=== PATIENT | female | born 1960 | race African-American/Black ===

== ENCOUNTER → 2016-10-31 | Outpatient (CLI) | payer MEDICARE | LOC: WI 10:58 | PROVIDERS: ATTEND Internal Medicine | DX: Z12.31 Encounter for screening mammogram for malignant neoplasm of breast (principal) | CPT/HCPCS: 77067; G0202 ==

== ENCOUNTER → 2018-01-04 | Outpatient (CLI) | payer MEDICARE ==
--- NOTE | 2018-01-04 11:57 | WOMENS IMAGING REPORT ---
EXAM DESCRIPTION: 3D SCREENING MAMMO BILAT COMPLETED DATE/TIME: 01/04/2018 8:51 am REASON FOR STUDY: ROUTINE SCREENING;Z12.31 Z12.31 ENCNTR SCREEN MAMMOGRAM FOR MALIGNANT NEOPLASM OF MARIEL COMPARISON: Multiple since 2012 TECHNIQUE: Standard craniocaudal and mediolateral oblique views of each breast recorded using digita l acquisition and breast tomosynthesis. LIMITATIONS: None. FINDINGS: Findings present which are benign by mammographic criteria. No suspicious masses, calcifi cations or architectural distortion. Pertinent benign findings: Benign left breast parenchymal calcifications Read with the assistance of CAD. .[facility] - R2 Cenova Version 1.3 .[facility] Imaging - R2 Cenova Version 1.3 .[facility] Imaging - R2 Cenova Version 2.4 .[facility] [place] R2 Cenova Version 2.4 .[facility] - R2 Publicity Agent Version 9.2 Benign mammographic findings may include one or more of the following: Smooth masses, popcorn/rim/co arse calcifications, asymmetries, post-procedure changes, and lesions with long-standing stability. IMPRESSION: BENIGN MAMMOGRAPHIC FINDINGS. BIRADS 2 BREAST DENSITY: b. There are scattered areas of fibroglandular density. BIRAD: 2 BENIGN FINDING(S) RECOMMENDATION: RECOMMENDATION: ROUTINE SCREENING Please continue yearly bilateral screening tomosynthesis in December 2018 COMMENT: The patient has been notified of the results by letter per SA requirements. Additional no tification policies are in place for contacting patient with suspicious or incomplete findings. Quality ID #[id number]: The [employer] recommends an annual screening mammogram for women aged 40 years or over. This facility utilizes a reminder system to ensure that all patients receive reminder letters, and/or direct phone calls for appointments. This includes reminders for routine scr eening mammograms, diagnostic mammograms, or other Breast Imaging Interventions when appropriate. Th is patient will be placed in the appropriate reminder system. The [employer] (ACR) has developed recommendations for screening MRI of the breast s in certain patient populations, to be used in conjunction with mammography. Breast MRI surveillanc e may be appropriate for women with more than 20% lifetime risk of developing breast cancer as deter mined by genetic testing, significant family history of the disease, or history of mantle radiation f or Hodgkins Disease. ACR Practice Guidelines 2008. DBT Technology DBT is a type of tomographic mammography. With conventional mammography, overlapping breast tissue ma y make lesions difficult to detect, even with good compression. DBT uses an x-ray tube that rotates a round the breast, taking images at different angles. These images are then combined to create thin sl ices of the breast that the radiologist can view as a 3D reconstruction. The Everfi unit can perform full-field digital mammograms (2D imaging); or DBT (3D imaging); or both, in a combination mode that quickly performs both the mammogram and the tomosynthesis scan while the breast is still compressed. PQRS 6045F: Fluoroscopic imaging is not utilized for breast tomosynthesis. TECHNICAL DOCUMENTATION: FINDING NUMBER: (1) ASSESSMENT: (1) JOB ID: [id number] [employer]- All Rights Reserved Reading location - IP/workstation name: [email or web address]
== END ==
LOC: WI 08:36
PROVIDERS: ATTEND Internal Medicine
DX: Z12.31 Encounter for screening mammogram for malignant neoplasm of breast (principal)
CPT/HCPCS: 77063; 77067

== ENCOUNTER → 2019-07-02 | Outpatient (CLI) | payer MEDICARE ==
--- NOTE | 2019-07-02 10:44 | WOMENS IMAGING REPORT ---
EXAM DESCRIPTION: 3D SCREENING MAMMO BILAT COMPLETED DATE/TIME: 07/02/2019 9:39 am REASON FOR STUDY: Z12.31 SCREENING MAMMO Z12.31 ENCNTR SCREEN MAMMOGRAM FOR MALIGNANT NEOPLASM OF B RE COMPARISON: [id number] EXAM PARAMETERS: Standard craniocaudal and mediolateral oblique views of each breast recorded using digital acquisition and breast tomosynthesis. Read with the assistance of CAD. .[facility] - [employer] Version 9.2 LIMITATIONS: None. FINDINGS: RIGHT BREAST MASSES: No suspicious masses. CALCIFICATIONS: No new or suspicious calcifications. ARCHITECTURAL DISTORTION: None. ASYMMETRY: None noted. OTHER: No other significant findings. LEFT BREAST MASSES: No suspicious masses. CALCIFICATIONS: No new or suspicious calcifications. ARCHITECTURAL DISTORTION: None. ASYMMETRY: Focal asymmetry lower inner quadrant about 7.5 cm deep to the nipple. OTHER: No other significant findings. IMPRESSION: Focal asymmetry left breast. 0 Incomplete: Needs Additional Imaging Evaluation and/or prior Mammograms for Comparison. BREAST DENSITY: b. There are scattered areas of fibroglandular density. BIRAD: ASSESSMENT: 0 Incomplete: Needs Additional Imaging Evaluation and/or prior Mammograms for C omparison. RECOMMENDATION: RECOMMENDED FOLLOW-UP: Cone compression views and potential ultrasound left breast. The patient will be contacted for additional imaging. COMMENT: The patient has been notified of the results by letter per MQSA requirements. Additional no tification policies are in place for contacting patient with suspicious or incomplete findings. Quality ID #225: The [employer] recommends an annual screening mammogram for women aged 40 years or over. This facility utilizes a reminder system to ensure that all patients receive reminder letters, and/or direct phone calls for appointments. This includes reminders for routine scr eening mammograms, diagnostic mammograms, or other Breast Imaging Interventions when appropriate. Th is patient will be placed in the appropriate reminder system. TECHNICAL DOCUMENTATION: FINDING NUMBER: (1) ASSESSMENT: (1) JOB ID: [id number] [employer]- All Rights Reserved Reading location - IP/workstation name: [email or web address]
== END ==
LOC: WI 09:20
PROVIDERS: ATTEND Internal Medicine
DX: Z12.31 Encounter for screening mammogram for malignant neoplasm of breast (principal); N64.89 Other specified disorders of breast
CPT/HCPCS: 77063; 77067

== ENCOUNTER → 2019-07-14 | Outpatient (CLI) | payer MEDICARE ==
--- NOTE | 2019-07-14 14:36 | WOMENS IMAGING REPORT ---
EXAM DESCRIPTION: 3D DX MAMMO LEFT UNILAT; U/S BREAST UNILAT LIMITED COMPLETED DATE/TIME: 07/14/2019 11:39 am; 07/14/2019 12:06 pm REASON FOR STUDY: R92.2 INCONCLUSIVE MAMMOGRAM; R92.2 LT BREAST R92.2 INCONCLUSIVE MAMMOGRAM COMPARISON: Multiple since 2014 EXAM PARAMETERS: Cone compression craniocaudal and mediolateral oblique images of the breast recorde d using digital acquisition and breast tomosynthesis. Additional left breast 90 mediolateral view. Left breast and axilla ultrasound was performed. Read with the assistance of CAD. .[facility] - [employer] Version 9.2 LIMITATIONS: None. FINDINGS: BREAST LATERALITY: left MASSES: In the lower inner quadrant left breast about 5 cm from the nipple, a subcentimeter mammograp hic mass is present with partial border loss. This was subsequently shown at ultrasound to represent a small solid hypoechoic mass 4 mm in size indeterminate for malignancy. CALCIFICATIONS: No new or suspicious calcifications. ARCHITECTURAL DISTORTION: None. ASYMMETRY: None noted. OTHER: No other significant findings. Left breast and axilla ultrasound: Ultrasound of the lower inner quadrant left breast demonstrates a solid hypoechoic 4 mm by 6 mm mammo graphic nodule, taller than wide, with internal color flow. This is worrisome for a small malignant nodule. Ultrasound-guided core biopsy, post biopsy clip placement and immediate follow-up two-view m ammogram recommended. IMPRESSION: New solid mass lower inner quadrant left breast 6 x 4 mm in size indeterminate for malig armando. Biopsy recommended (BI-RADS 4). BREAST DENSITY: b. There are scattered areas of fibroglandular density. BIRAD: ASSESSMENT: 4 Suspicious. Biopsy should be performed in the absence of clinical contra-indic ation. RECOMMENDATION: RECOMMENDED FOLLOW UP: Ultrasound-guided core biopsy left breast, post biopsy clip p lacement with immediate follow-up two-view mammogram SPECIFIC INTERVENTION/IMAGING/CONSULTATION RECOMMENDED:Ultrasound-guided core biopsy left breast, pos t biopsy clip placement with immediate follow-up two-view mammogram COMMUNICATION:Patient notified by letter. These results were not discussed directly with the patient COMMENT: The patient has been notified of the results by letter per MQSA requirements. Additional no tification policies are in place for contacting patient with suspicious or incomplete findings. Quality ID #225: The [employer] recommends an annual screening mammogram for women aged 40 years or over. This facility utilizes a reminder system to ensure that all patients receive reminder letters, and/or direct phone calls for appointments. This includes reminders for routine scr eening mammograms, diagnostic mammograms, or other Breast Imaging Interventions when appropriate. Th is patient will be placed in the appropriate reminder system. TECHNICAL DOCUMENTATION: FINDING NUMBER: (1) ASSESSMENT: (1) JOB ID: [id number] [employer]- All Rights Reserved Reading location - IP/workstation name: [email or web address]
--- NOTE | 2019-07-14 14:36 | WOMENS IMAGING REPORT ---
EXAM DESCRIPTION: 3D DX MAMMO LEFT UNILAT; U/S BREAST UNILAT LIMITED COMPLETED DATE/TIME: 07/14/2019 11:39 am; 07/14/2019 12:06 pm REASON FOR STUDY: R92.2 INCONCLUSIVE MAMMOGRAM; R92.2 LT BREAST R92.2 INCONCLUSIVE MAMMOGRAM COMPARISON: Multiple since 2014 EXAM PARAMETERS: Cone compression craniocaudal and mediolateral oblique images of the breast recorde d using digital acquisition and breast tomosynthesis. Additional left breast 90 mediolateral view. Left breast and axilla ultrasound was performed. Read with the assistance of CAD. .[facility] - [employer] Version 9.2 LIMITATIONS: None. FINDINGS: BREAST LATERALITY: left MASSES: In the lower inner quadrant left breast about 5 cm from the nipple, a subcentimeter mammograp hic mass is present with partial border loss. This was subsequently shown at ultrasound to represent a small solid hypoechoic mass 4 mm in size indeterminate for malignancy. CALCIFICATIONS: No new or suspicious calcifications. ARCHITECTURAL DISTORTION: None. ASYMMETRY: None noted. OTHER: No other significant findings. Left breast and axilla ultrasound: Ultrasound of the lower inner quadrant left breast demonstrates a solid hypoechoic 4 mm by 6 mm mammo graphic nodule, taller than wide, with internal color flow. This is worrisome for a small malignant nodule. Ultrasound-guided core biopsy, post biopsy clip placement and immediate follow-up two-view m ammogram recommended. IMPRESSION: New solid mass lower inner quadrant left breast 6 x 4 mm in size indeterminate for malig armando. Biopsy recommended (BI-RADS 4). BREAST DENSITY: b. There are scattered areas of fibroglandular density. BIRAD: ASSESSMENT: 4 Suspicious. Biopsy should be performed in the absence of clinical contra-indic ation. RECOMMENDATION: RECOMMENDED FOLLOW UP: Ultrasound-guided core biopsy left breast, post biopsy clip p lacement with immediate follow-up two-view mammogram SPECIFIC INTERVENTION/IMAGING/CONSULTATION RECOMMENDED:Ultrasound-guided core biopsy left breast, pos t biopsy clip placement with immediate follow-up two-view mammogram COMMUNICATION:Patient notified by letter. These results were not discussed directly with the patient COMMENT: The patient has been notified of the results by letter per MQSA requirements. Additional no tification policies are in place for contacting patient with suspicious or incomplete findings. Quality ID #225: The [employer] recommends an annual screening mammogram for women aged 40 years or over. This facility utilizes a reminder system to ensure that all patients receive reminder letters, and/or direct phone calls for appointments. This includes reminders for routine scr eening mammograms, diagnostic mammograms, or other Breast Imaging Interventions when appropriate. Th is patient will be placed in the appropriate reminder system. TECHNICAL DOCUMENTATION: FINDING NUMBER: (1) ASSESSMENT: (1) JOB ID: [id number] [employer]- All Rights Reserved Reading location - IP/workstation name: [email or web address]
== END ==
LOC: WI 11:00
PROVIDERS: ATTEND Internal Medicine
DX: N63.24 Unspecified lump in the left breast, lower inner quadrant (principal)
CPT/HCPCS: 76642; 77065; G0279

== ENCOUNTER → 2019-09-03 | Day surgery (SDC) | payer MEDICARE ==
[~2019-09-03] MED LIST: LIDOCAINE 1%/EPINEPHRINE INJ 20 ML VIAL ONE
--- NOTE | 2019-09-03 10:43 | Discharge Summary ---
Discharge Summary (SDC) - Discharge Final Diagnosis: Asymmetric nodular density left breast Date of Surgery: 09/03/19 Discharge Date: 09/03/19 Condition: Good Treatment or Instructions: Use supportive bra; resume preoperative medications, diet; no heavy physical activity; follow-up with [facility] Dr. Escobar, in 1 to 2 weeks; may take home pain medications; may shower in 24 hours Referrals: NEEL MILLER MD [Primary Care Provider] - Discharge Diet: As Tolerated Discharge Activity: Activity As Tolerated Home Care Assistance: None Needed Report the Following to Your Physician Immediately: Shortness of Breath, Increase in Pain, Fever over 101 Degrees
--- NOTE | 2019-09-03 10:48 | Operative Report ---
Operative Report DATE OF SURGERY: 09/03/19 PREOPERATIVE DIAGNOSIS: Asymmetric nodular density left breast POSTOPERATIVE DIAGNOSIS: Same OPERATION: 1. Stereotactically directed incision mammotomy core biopsies left breast nodule. 2. Placement of clip marker into biopsy cavity left breast. 3. Interpretation of intraoperative mammograms SURGEON: GAVIN MONSON ANESTHESIA: Local TISSUE REMOVED OR ALTERED: Multiple coarse left breast COMPLICATIONS: None ESTIMATED BLOOD LOSS: Scant INTRAOPERATIVE FINDINGS: See below PROCEDURE: The patient was taken from the radiologic department holding area to the stereotactic room where she was placed in the prone position, left breast placed into compression in a craniocaudal configuration. The target asymmetric nodular density was localized. Stereotactic views were obtained. Surgical plan surgical timeout were conducted. The inferior surface of the left breast was prepped with Betadine, skin anesthetized 1% plain lidocaine. A small vince was made in the skin with 11 blade, mammotome advanced to the appropriate depth. Pre-and post fire films showed good alignment between the mammotome, and the target asymmetric nodular density. We now completed core biopsy in a circumferential fashion of the target nodule. Specimens were collected on a Dahlia dish and sent to pathology for permanent analysis. A clip marker was then deployed into the biopsy cavity, post deployment images showed retention of a marker in the left breast. Introducer removed from the left breast. Gentle compression applied. Patient tolerated the procedure well. Patient was subsequently taken to the imaging suite for completion post biopsy mammogram. Patient tolerated the procedure well. Discharge instructions provided. She will follow-up with Dr. duron in 1 to 2 weeks. We will call her with the results of the path report.
--- NOTE | 2019-09-08 16:57 | RADIOLOGY REPORT (SQ) ---
EXAM DESCRIPTION: STEREO BREAST BX; LEFT DIAGNOSTIC MAMMO W/CAD COMPLETED DATE/TIME: 09/03/2019 12:32 pm; 09/03/2019 10:55 am REASON FOR STUDY: LEFT BREAST MASS (N63.24); POST STEREO; N63.24 LEFT BREAST N63.24 UNSPECIFIED LUM P IN THE LEFT BREAST, LOWER INNER QUAD COMPARISON: 07/14/2019 LIMITATIONS: None. PROCEDURE: Vacuum-assisted stereotactic-guided biopsy of the lesion in the left breast targeted and performed by Dr. Escobar, the operating surgeon. Procedure and post-procedure imaging interpreted b y a radiologist. Using stereotactic guidance, a vacuum-assisted core biopsy of the targeted lesion was performed. A p ellet clip was deployed at the biopsy site. Post procedure image reveals the clip at the biopsy site . TECHNIQUE: Images from the stereotactic unit acquired during the procedure. Specimen radiography performed. Yes Post- procedure image acquired post-clip placement. Yes Post procedure 2 view mammograms performed in the mammography suite for clip placement. Yes FINDINGS: SPECIMEN RADIOGRAPH:Solid tumor identified. POST PROCEDURE MAMMOGRAMS FOR MARKER PLACEMENT: Yes POST PROCEDURE MAMMOGRAM: Clip is in expected location. No significant hematoma. PATHOLOGY: Invasive ductal carcinoma CONCORDANT: Yes. The operating surgeon was notified of the findings. IMPRESSION: SUCCESSFUL STEREOTACTIC-GUIDED BIOPSY OF LESION IN THE LEFT BREAST. BIOPSY RESULTS ARE CONCORDANT WITH IMAGING FINDINGS. FOLLOW-UP: BI-RADS 6, known malignancy, appropriate action should be taken. TECHNICAL DOCUMENTATION: JOB ID: [id number] [employer] All Rights Reserved Reading location - IP/workstation name: [email or web address]
== END ==
LOC: RAD 08:47
PROVIDERS: ATTEND Surgery
DX: C50.912 Malignant neoplasm of unspecified site of left female breast (principal); E11.9 Type 2 diabetes mellitus without complications; G62.9 Polyneuropathy, unspecified; I25.10 Atherosclerotic heart disease of native coronary artery without angina pectoris; Z79.899 Other long term (current) drug therapy; Z79.84 Long term (current) use of oral hypoglycemic drugs; I10 Essential (primary) hypertension; K74.60 Unspecified cirrhosis of liver
CPT/HCPCS: 88305 ×2; 88342; 19081; 77065; J3490

== ENCOUNTER 2020-01-14 14:28 | Day surgery (SDC) | payer MEDICARE ==
[2020-01-07 10:26] LABS: HEMATOCRIT 42.8 % (36.0-47.0); HEMOGLOBIN 14.4 g/dL (12.0-15.5); MEAN CORPUSCULAR HGB CONC 33.7 g/dL (32.0-36.0); RED BLOOD COUNT 4.51 10^6/uL (3.72-5.28); RED CELL DISTRIBUTION WIDTH 14.8 % (11.5-14.0); WHITE BLOOD COUNT 3.5 10^3/uL (4.0-10.5)
[2020-01-07 10:52] LABS: MEAN CORPUSCULAR VOLUME 95 fl (80-97); PLATELET COUNT 95 10^3/uL (150-450)
[2020-01-07 10:58] LABS: ALKALINE PHOSPHATASE 141 U/L (38-126); ANION GAP 5 (5-19); ASPARTATE AMINO TRANSFERASE 33 U/L (14-36); BILIRUBIN,TOTAL 0.5 mg/dL (0.2-1.3); BLOOD UREA NITROGEN 12 mg/dL (7-20); CALCIUM 9.3 mg/dL (8.4-10.2); CARBON DIOXIDE 28 mmol/L (22-30); CHLORIDE 104 mmol/L (98-107); GLUCOSE 114 mg/dL (75-110); POTASSIUM 3.8 mmol/L (3.6-5.0); TOTAL PROTEIN 7.5 g/dL (6.3-8.2)
[~2020-01-14 14:28] MED LIST changes: +CEFAZOLIN 1 GM/D5W RTU 1 GM/50 ML RTUPB IV ONE; +CEFAZOLIN 1 GM/D5W RTU 1 GM/50 ML RTUPB IV PRN; +DEXAMETHASONE SOD PHOSPHATE INJ 4 MG/1 ML VIAL ONE; +DIPHENHYDRAMINE HCL 50 MG/ML VIAL IV PRN; +FENTANYL CITRATE INJ/PF 100 MCG/2 ML AMPUL IV PRN; +FENTANYL CITRATE INJ/PF 100 MCG/2 ML AMPUL ONE; +LACTATED RINGERS 1000 ML IV PRN; +LIDOCAINE 0.5% INJ-PF (5 MG/ML) 50 ML SDV SUBCUT PRN; +LIDOCAINE 1% INJ-PF (10 MG/ML) 30 ML SDV ONE; +LIDOCAINE 4% CREAM 5 GM TUBE ONE; +LIDOCAINE 4% CREAM 5 GM TUBE TP PRN; +MEPERIDINE HCL/PF INJ 25 MG/1 ML DISP.SYRIN IV PRN; +METHYLENE BLUE 50 MG/10 ML AMPULE ONE; +MICROFIBRILLAR COLLAGEN 1 GM PACK ONE; +MIDAZOLAM 2 MG/2 ML INJ ONE; +ONDANSETRON HCL INJ/PF 4 MG/2 ML SDV ONE; +OXYCODONE-ACETAMINOPHEN 5-325 MG TABLET PO PRN; +PROMETHAZINE HCL INJ 25 MG/1 ML VIAL IV PRN; +PROPOFOL INJ 200 MG/20 ML VIAL IV ONE
[2020-01-14] MEDS ORDERED: OXYCODONE-ACETAMINOPHEN 5-325 MG TABLET PO PRN (14:29)
--- NOTE | 2020-01-14 14:29 | Discharge Summary ---
Discharge Summary (SDC) - Discharge Final Diagnosis: Left breast cancer Date of Surgery: 01/14/20 Discharge Date: 01/14/20 Condition: Good Treatment or Instructions: [facility] [address], [place] [address] Care Instructions Following Your Lumpectomy Activities: Resume normal activities when you feel comfortable. It is best to remain as active as possible to speed your recovery. It is common to experience some fatigue after surgery and you may find that short naps are helpful. Avoid strenuous activity such as weight lifting, tennis, etc at your surgical site for two weeks. Perform gentle arm exercises daily and do not favor your operative arm to due increased risk of mobility issues postoperatively. No driving for 7 days after surgery. Do not drive if you are taking pain medication other than Tylenol or Ibuprofen. No swimming, tub baths or soaking in a hot tub for 4 weeks. There are no dietary restrictions. Do not smoke as this impairs wound healing. Surgical Site care: You may shower in 24 hours to include washing the wound with soap and water using your hands. Do not scrub the incision. Leave skin glue intact. Pat the area dry with a towel. You do not need to recover the wound although some patients find that they feel more comfortable using a light dressing for a few days to absorb any minimal drainage which may occur. You may apply deodorant if you are careful to avoid getting it on the wound itself. Medications: Take Toradol 10mg one pill by mouth every six hours around the clock. Do not take additional NSAIDs with medication. Resume all of your normal prescription medications after your surgery unless instructed otherwise. You may experience constipation after surgery while taking pain medications. If using a narcotic on a regular basis, take a stool softener such as Colace twice a day. It is helpful to stay hydrated by drinking lots of fluids. Walking is also helpful and is good exercise after surgery. If you need extra help, use Milk of Magnesia according to the directions on the package. Follow-up: Call our office at to make a follow-up appointment in 10-14 days. Your doctor will call to discuss the pathology report with you as soon as it is available. Concerns: If you had a sentinel lymph node biopsy with your mastectomy, your urine may have a greenish discoloration. This is normal and will resolve as the blue dye slowly leaves your system. If you notice significant leakage around the drains, this is not normal. The drains may be clogged. Please call our office to come in immediately for the drains to be checked. Some bruising may occur and will go away over time. If you have a fever of 101.5 or greater, chills, redness at the incision site, excessive drainage from your wound or severe pain not relieved by pain medication, call your doctor. A physician is available 24 hours a day 7 days a week in addition to regular office hours. If problems arise after normal office hours please call the hospital at . Please call if you have any questions or concerns. Prescriptions: Ketorolac Tromethamine [Toradol 10 mg Tablet] 10 mg PO Q6HP PRN #20 tablet PRN Reason: Referrals: NEEL MILLER MD [Primary Care Provider] - Discharge Diet: As Tolerated Discharge Activity: Activity As Tolerated, Balance Activity w/Rest, Walk Frequently Report the Following to Your Physician Immediately: Increase in Pain, Fever over 101 Degrees, Unusual Bleeding, Redness, Swelling, Warmth, Increased Soreness, Drainage-Foul Smelling
--- NOTE | 2020-01-14 14:34 | Operative Report ---
Operative Report DATE OF SURGERY: 01/14/20 PREOPERATIVE DIAGNOSIS: 1. Invasive left breast ductal carcinoma. 2. History of liver insufficiency POSTOPERATIVE DIAGNOSIS: Same OPERATION: 1. Ultrasound directed, needle localized breast lumpectomy. 2. Interpretation of intraoperative submitted radiograph. 3. [place] lymph node biopsy left axilla x1 SURGEON: GAVIN ESCOBAR 1ST [employer] SHAPER: MILLIE HAMMOND ANESTHESIA: GA TISSUE REMOVED OR ALTERED: Left breast lump; medial-deep margin: Left axillary sentinel node COMPLICATIONS: None ESTIMATED BLOOD LOSS: Scant INTRAOPERATIVE FINDINGS: See below PROCEDURE: The patient was seen in the preop holding area after undergoing lymphoscintigraphy of the left breast. Patient was found to have an area of increased uptake in the left axilla. Left breast was marked. In addition the patient underwent needle localization of the previously placed clip marker in the left breast. The patient was taken to the operating room where general anesthesia was induced. Left axilla was abducted, wire and needle clipped at the skin level from the left breast, and approximately 2 cc of full-strength methylene blue was injected into the left breast, 2 o'clock position, intradermally. The left breast was massaged for approximately 4 minutes, and the left breast and left axilla were prepped and draped in sterile fashion. Surgical plan surgical timeout were conducted. Using intraoperative ultrasonography, we identified what we believed to be the clip and tumor in the left breast. The needle and wire could not be appreciated ultrasonographically. The tumor was difficult to confirmed by ultrasonography due to its subtle features. We anesthetized the skin with 1% plain lidocaine, and made an elliptical incision with a very narrow width of skin, approximately 4 mm in length, with the length of the horizontally oriented lumpectomy incision approximately 5 cm long. This encompassed the needle at the medial aspect of the incision. We now performed a lumpectomy approximately 5 x 6 x 7 cm in dimensions using electrocautery. Unfortunately the needle and wire popped out of the specimen during dissection. The specimen was removed from the patient, marked with a short suture, 2-0 silk, the superior position and a long suture in the lateral position, and scanned with the ultrasound and felt to have a clip in it. We then placed the specimen in a cup and performed a specimen radiograph which demonstrated retention of the clip. Confirmation of the tumor again was difficult due to adult features of the target lesion. The specimen was now personally taken by Dr. Escobar to pathology where it was reviewed with Dr. fermin. The specimen was inked, and sliced vertically. The tumor, and clip marker were found in the medial deep aspect of the lumpectomy specimen. The margins appear to be grossly clear, however we felt that a general resection of the cavity was appropriate. Dr. Escobar scrubbed back into the field, and removed a small portion of fatty tissue from the deep aspect of the lumpectomy cavity including the medial and inferior wall approximately 3 x 3 x 1/2 cm. This was labeled with a short suture in the superior position, long suture in the lateral position. It was sent for permanent analysis. We now proceeded to perform a left axillary sentinel lymph node biopsy. An area of increased activity in the mid left axilla was identified. Skin was anesthetized 1% plain lidocaine. A 2 and half centimeter incision was made in the axilla, using electrocautery and S-shaped retractors, a dominant, sentinel lymph node which was hot and blue was identified in the low, level 1 axillary region. The in vivo count was 19,816 and the ex vivo count was 7533. It was removed using gentle traction electrocautery. Background counts were negligible. We felt the sentinel lymph node biopsy portion of the operation was complete. Sponge needle counts are correct. Both breast the lumpectomy wound and axillary wounds were inspected for bleeding and there was none. Wounds closed with 3-0 Vicryl, and glue. Patient tolerated the procedure well, extubated, taken recovery in stable condition. The physician benefits assistant, Ms. Muller, provided assistance during this case by: retracting tissue, instillation of local anesthesia and closure of skin incisions.
[2020-01-14] MEDS: FENTANYL CITRATE INJ/PF 100 MCG/2 ML AMPUL ONE ×2 (14:44→14:50)
[2020-01-14] MEDS ORDERED: HYDRALAZINE HCL INJ/PF 20 MG/1 ML SDV ONE (14:56)
[2020-01-14 17:48] VITALS: BP 109/52
--- NOTE | 2020-01-15 08:48 | RADIOLOGY REPORT (SQ) ---
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 RADIONUCLIDE AND DOSE: 584 microcuries TC-99m tilmanocept - [employer]. The route of agent administration: Subcutaneous and intradermal injections TECHNIQUE: The skin of the left breast was prepped in sterile fashion. The radiopharmaceutical was administered in equally divided doses in the periareolar breast. LIMITATIONS: None. FINDINGS: Images demonstrate activity at the injection site as well as within the left axilla. IMPRESSION: ADMINISTRATION OF RADIOPHARMACEUTICAL FOR SENTINEL LYMPH NODE EVALUATION. TECHNICAL DOCUMENTATION: JOB ID: [id number] 2010 [employer])- All Rights Reserved Reading location - IP/workstation name: [email or web address]
--- NOTE | 2020-01-15 08:50 | WOMENS IMAGING REPORT ---
EXAM DESCRIPTION: WIRE LOC MAMMO; BREAST SPECIMEN IMAGES COMPLETED DATE/TIME: 01/14/2020 12:57 pm; 01/14/2020 2:44 pm REASON FOR STUDY: C50.912 MALIGNANT NEOPLASM OF UNSPECIFIED SITE OF LEFT FEMALE BREAST; LEFT BREAST SPECIMEN IN OR C50.912 MALIGNANT NEOPLASM OF UNSPECIFIED SITE OF LEFT FEMAL Z15.01 GENETIC SUSCEPTI BILITY TO MALIGNANT NEOPLASM OF BREAS COMPARISON: 09/03/2019 and 07/14/2020 TECHNIQUE: The marker in the left breast was localized mammographically using a grid marker. The s kin of the breast was prepped in sterile fashion and local anesthesia was provided. The localization needle was advanced to the target. The tip was positioned adjacent to the target and confirmed with two orthogonal views. Surgical dye was not injected for this procedure. The wire was placed through the needle and the hook engaged. Post procedure mammogram demonstrates satisfactory position of the needle and wire. Specimen radiograph demonstrates the targeted lesion within the biopsy specimen. LIMITATIONS: None. FINDINGS: Procedure as above. Pathology: Pending. IMPRESSION: SUCCESSFUL NEEDLE LOCALIZATION OF THE LESION IN THE LEFT BREAST. FOLLOW-UP PER THE Joey GALLEGOS'S SURGEON. TECHNICAL DOCUMENTATION: JOB ID: [id number] 2010 [employer]- All Rights Reserved Reading location - IP/workstation name: [email or web address]
== END 2020-01-14 16:20 | disposition home or self-care (01) ==
LOC: OROUT 14:28 → UNDODISIN 16:20 → OROUT 16:20
PROVIDERS: ATTEND Surgery
DX: C50.912 Malignant neoplasm of unspecified site of left female breast (principal); Z15.01 Genetic susceptibility to malignant neoplasm of breast; C50.812 Malignant neoplasm of overlapping sites of left female breast; Z17.0 Estrogen receptor positive status [ER+]; I25.10 Atherosclerotic heart disease of native coronary artery without angina pectoris; G62.9 Polyneuropathy, unspecified; K74.60 Unspecified cirrhosis of liver; E11.9 Type 2 diabetes mellitus without complications; I10 Essential (primary) hypertension; F17.210 Nicotine dependence, cigarettes, uncomplicated; Z88.5 Allergy status to narcotic agent; Z79.899 Other long term (current) drug therapy; Z80.3 Family history of malignant neoplasm of breast
CPT/HCPCS: 36415; 82962; 85027; 80076; 80048; 88342 ×2; 88307 ×2; 78195; 01610; 76098; 19281; 19301; 38500; U0003; A9520; J2250; J0690; J1100; J3010; J0360; J3490 ×3; J2405; J2704; Q9968; C9803; 1610; 87635